=== PATIENT | female | born 1975 | race Caucasian/White ===

== ENCOUNTER 2023-12-17 08:55 | Outpatient (CLI) | payer OTHER, MEDICAID | END 2023-12-17 08:56 | disposition home or self-care (01) | LOC: BICMRI 08:55 | PROVIDERS: ATTEND Family Medicine | DX: M47.22 Other spondylosis with radiculopathy, cervical region (principal); G89.4 Chronic pain syndrome; Z98.1 Arthrodesis status | CPT/HCPCS: 72040; 72141 ==